=== PATIENT | female | born 1935 | race Caucasian/White ===

== ENCOUNTER → 2017-07-11 | Outpatient (CLI) | payer OTHER, MEDICARE | LOC: FIMAGING 14:18 | PROVIDERS: ATTEND Physical Medicine & Rehabilitation | DX: M48.02 Spinal stenosis, cervical region (principal); M47.892 Other spondylosis, cervical region ==

== ENCOUNTER 2017-11-29 15:45 | Emergency (ER) | payer OTHER, MEDICARE ==
--- NOTE | 2017-11-29 16:08 | EDPHY ---
H & P Stated Complaint: Non traumatic L foot pain and swelling, recent plane travel Source: Patient Exam Limitations: No limitations - Medical/Surgical History Hx Asthma: Yes Hx Chronic Respiratory Disease: No Hx Diabetes: No Hx Cardiac Disease: No Hx Renal Disease: No Hx Cirrhosis: No Hx Alcoholism: No Hx HIV/AIDS: No Hx Splenectomy or Spleen Trauma: No Other PMH: Asthma, HTN, high chol, hypothyroid, colon resection, bilat hip replacements 2016 - Social History Smoking Status: Never smoked Time Seen by Provider: 11/29/17 16:08 HPI/ROS: HPI: This 82-year-old female who presents with Chief Complaint: Non traumatic L foot pain and swelling, recent plane travel Location: Left foot and leg Quality: Pain and swelling Duration: 1 week Signs and Symptoms: No bleeding, no radiation, no numbness, no weakness, no tingling, no incontinence, no decreased range of motion, + swelling, + pain, no fever Timing: Gradual onset Severity: Moderate Context: Patient reports that approximately 2 weeks ago she on Thursday she flew to [place] for her granddaughter's graduation. She flew home 1 week later on a Thursday. This was approximately 4 days ago. She reports that over the last week she has had gradual onset of swelling in her left lower leg and associated pain that worsened with touching the area or weight-bearing. Patient does have a history asthma but denies any shortness of breath worse than her baseline. She does not remember any trauma or injury. She is postmenopausal. Nonsmoker. Modifying Factors: Comment: ROS: see HPI Constitutional: No fever, no chills, no weight loss Eyes: No blurred vision Respiratory: No shortness of breath, no cough Cardiovascular: No chest pain Gastrointestinal: No nausea, no vomiting no diarrhea Genitourinary: No dysuria Extremities: No myalgias Neurologic: No weakness, no numbness Skin: No rashes Hematologic: No bruising, no bleeding MEDICAL/SURGICAL/SOCIAL HISTORY: Medical/Surgical history: Asthma, HTN, high chol, hypothyroid, colon resection , bilateral hip replacements 2016 Social history: Retired. Son is a aquatics lifeguard. CONSTITUTIONAL: Extremely polite and cooperative elderly female appears younger than stated age, awake and alert, no obvious distress HEENT: Atraumatic and normocephalic, PERRL, EOMI. Nares patent; no rhinorrhea; no nasal mucosal edema. Tympanic membranes clear. Oropharynx clear, no exudate and moist pink mucosa. Airway patent. No lymphadenopathy. No meningismus. Cardiovascular: Normal S1/S2, regular rate, regular rhythm, without murmur rub or gallop. PULMONARY/CHEST: Symmetrical and nontender. Clear to auscultation bilaterally. Good air movement. No accessory muscle usage. ABDOMEN: Soft, nondistended, nontender, no rebound, no guarding, no peritoneal signs, no masses or organomegaly. No CVAT. EXTREMITIES: 2/2 pulses, strength 5/5, left lower leg is twice the size of her right lower leg; positive Homans sign; no palpable cord; no varicose veins. There is some mild fullness noted in the anterior fossa of her left knee concerning for Thomas's Cyst. Left Ankle: Plantar flexion to 50, dorsiflexion to 20. Foot inversion to 35 degree. No tenderness/swelling Anterior talofibular ligament. No tenderness/swelling Calcaneofibular ligament, no tenderness/swelling posterior talofibular ligament, no tenderness/swelling posterior inferior tibiofibular ligament. Achilles tendon intact. no deformities, no clubbing, no cyanosis or edema. NEUROLOGICAL: no focal neuro deficits. GCS 15. SKIN: Warm and dry, no erythema. no rash. Good capillary refill. (Anjelica Yousif) Constitutional: Initial Vital Signs Temperature (C) 37.0 C 11/29/17 15:51 Heart Rate 76 11/29/17 15:51 Respiratory Rate 16 11/29/17 15:51 Blood Pressure 158/72 H 11/29/17 15:51 O2 Sat (%) 97 11/29/17 15:51 O2 Delivery Mode Room Air Allergies/Adverse Reactions: Horse/Equine Containing Products Allergy (Verified 08/09/15 10:25) Penicillins Allergy (Verified 08/09/15 10:25) Tetanus Vaccines and Toxoid [Tetanus Vaccines & Toxoid] Allergy (Verified 10:25) Home Medications: Medication Instructions Recorded LYRICA 11/29/17 Levothyroxine 11/29/17 Simvastatin 11/29/17 Medical Decision Making ED Course/Re-evaluation: Labs to determine renal function and left lower extremity ultrasound ordered Vital signs stable upon arrival. No tachycardia, tachypnea, hypoxia. 1630: End of shift. Signed over to Dr. Yoder pending ultrasound results. I believe that if the ultrasound is positive for DVT, the patient would be appropriate to treat outpatient as she is hemodynamically stable, ambulatory, low risk of bleeding. She would be a great Eliquis candidate. Patient can follow up with her primary care provider in 2-3 days. This patient was seen under the supervision of my secondary supervising physician. I evaluated care for this patient independently. Discussed this patient with Dr. Yoder who did not see the patient. (Anjelica Yousif) I have evaluated and participated in the management of this patient. My co- signature indicates that I have reviewed this chart and that I agree with the findings and the plan of care as documented. My personal history and physical findings include: Left leg swelling in the setting of recent airplane trip. Patient complains of some left foot pain. No trauma. Left leg is larger than right, no tenseness. No bony tenderness. Subtle fullness posterior fossa left knee. No joint line tenderness. No ligamentous instability. FAROM left hip, knee, ankle. Sensation intact to light touch both LEs. Lungs CTA. Heart RRR. Ultrasound reported to me as positive for Thomas's cyst. No DVT.Patient given these results and information on symptomatic treatment. She will follow up with PCP and/or ortho. (Amarilys Yoder) Differential Diagnosis: Leg swelling including but not limited to hypoalbuminemia, congestive heart failure, cor pulmonale, chronic venous stasis and DVT. (Anjelica Yousif) - Data Points Laboratory Results: Laboratory Results 11/29/17 16:10 11/29/17 16:10 Departure - Departure Disposition: Home, Routine, Self-Care Clinical Impression: Thomas's cyst of knee Qualifiers: Laterality: left Qualified Code(s): M71.22 - Synovial cyst of popliteal space [ Thomas], left knee Condition: Good Instructions: Bakers Cyst (ED) Additional Instructions: Check in with a caregiver at [place] in the next day or two. If you are worse in any way--trouble breathing, chest pain, more swelling or leg pain--you should be re-evaluated immediately. Referrals: Spring Herman MD [Primary Care Provider] - As per Instructions
[2017-11-29 16:19] LABS: PLATELET COUNT 305 10^3/uL (150-400)
[2017-11-29 17:39] VITALS: BP 147/97
== END 2017-11-29 17:47 | disposition home or self-care (01) ==
DX: M71.22 Synovial cyst of popliteal space [Baker], left knee (principal); J45.909 Unspecified asthma, uncomplicated; I10 Essential (primary) hypertension